=== PATIENT | male | born 2000 | race African-American/Black ===

== ENCOUNTER 2022-01-02 20:38 | Emergency (ER) | payer OTHER, SELFPAY ==
[2022-01-02 20:45] VITALS: BP 124/79; BP 151/82; PULSE 101; PULSE 94; RESP 18; TEMP 37.2; O2SAT 100; O2SAT 95; BMI 19.2
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
[2022-01-02] MEDS: Naloxone HCl Nasal 4 MG SPRAY NOSTRILALT (21:28)
[2022-01-02 21:40] LABS: Glucose, Whole Blood 86 mg/dL (60-115)
[2022-01-03 04:41] VITALS: BP 128/82; PULSE 91; RESP 18; O2SAT 100
== END 2022-01-03 04:53 | disposition home or self-care (01) ==
LOC: HO.ED 01-03 04:47
PROVIDERS: Emergency Provider Emergency Medicine
DX: T40.1X1A Poisoning by heroin, accidental (unintentional), initial encounter (principal); R40.0 Somnolence; F19.10 Other psychoactive substance abuse, uncomplicated; Y92.9 Unspecified place or not applicable
CPT/HCPCS: 82947; 99283